=== PATIENT | female | born 1940 | race Caucasian/White ===

== ENCOUNTER → 2017-10-27 | Outpatient (CLI) | payer MEDICARE ==
[~2017-10-27] MED LIST: CLOPIDOGREL BISULFATE 75 MG TABLET; DIAZEPAM 10 MG TABLET.; HEPARIN SODIUM 5,000 UNIT/ML VIAL for PCVC.; HEPARIN for ARTERIAL LINE 1,500 ML; IODIXANOL 270 MG/ML 100 ML VIAL.; IOHEXOL 350 MG/ML 100 ML VIAL.; IV NORMAL SALINE 500ML BAG 500 ML; LIDOCAINE 1%/EPI 1:100,000 20 ML VIAL.; MIDAZOLAM HCL/PF 2 MG/2 ML VIAL.; ONDANSETRON PF 4 MG/2 ML VIAL.; WATER FOR INJECTION,STERILE 10 ML IJ; ceFAZolin SODIUM 1 GM VIAL; fentaNYL PF VIAL 100 MCG/2 ML VIAL; hydrALAZINE 20 MG/ML VIAL.
== END | disposition home or self-care (01) ==
LOC: PCVCINTER 07:24
DX: I70.202 Unspecified atherosclerosis of native arteries of extremities, left leg (principal); I70.1 Atherosclerosis of renal artery; I25.10 Atherosclerotic heart disease of native coronary artery without angina pectoris; I42.9 Cardiomyopathy, unspecified; I10 Essential (primary) hypertension; I11.0 Hypertensive heart disease with heart failure; E78.5 Hyperlipidemia, unspecified; Z95.810 Presence of automatic (implantable) cardiac defibrillator
CPT/HCPCS: 36252; 37221; 37223; 37236; 75716; 76937; 93458; 99152; 99153; C1725; C1751; C1760; C1769; C1876; C1887; C1894; J0360; J0690; J1644; J2250; J2405; J3010; J3490; J7040; Q9967

== ENCOUNTER → 2018-01-25 | Outpatient (CLI) | payer MEDICARE ==
--- NOTE | 2018-01-25 11:25 | PCVCIMAG ---
EXAM: BILATERAL CAROTID DUPLEX INDICATION: Carotid Occlusive Disease. FINDINGS: Doppler Measurements (centimeters per second): RIGHT: Peak CCA-56, Peak ECA-94, Diastolic ICA-46, Peak ICA-162, ICA/CCA Ratio-2.9. LEFT: Peak CCA-68, Peak ECA-79, Diastolic ICA-83, Peak ICA-230, ICA/CCA Ratio-3.4. RIGHT CAROTID: The carotid bulb has moderate plaque. The proximal internal carotid artery shows 60% stenosis. The common carotid artery shows no significant stenosis. The external carotid artery shows no significant stenosis. LEFT CAROTID: The carotid bulb has moderately severe plaque. The proximal internal carotid artery shows 70-80% stenosis. The common carotid artery shows no significant stenosis. The external carotid artery shows no significant stenosis. Antegrade flow in both vertebral arteries. IMPRESSION: 60% stenosis of the right internal carotid artery with moderate plaque. 70-80% stenosis of the left internal carotid artery with moderately severe plaque. LOC:[place] [id number]
--- NOTE | 2018-01-25 13:04 | PCVCIMAG ---
EXAM: NONINVASIVE ARTERIAL EXAMINATION OF BOTH LOWER EXTREMITIES INCLUDING PRE AND POST EXERCISE PRESSURE MEASUREMENTS AND DOPPLER WAVEFORMS INDICATION: Peripheral Arterial Disease. Leg pain. FINDINGS: Right Brachial: 144 mm Hg. Right Dorsalis Pedis: 96 mm Hg. Right Posterior Tibial: 80 mm Hg. Right JORGE LUIS = 0.67. Left Brachial: 138 mm Hg. Left Dorsalis Pedis: 60 mm Hg. Left Posterior Tibial: 79 mm Hg. Left JORGE LUIS = 0.55. Post Exercise: Right Brachial 155 mm Hg. Right Dorsalis Pedis: 52 mm Hg. Left Posterior Tibial: 90 mm Hg. Right JORGE LUIS = 0.34. Left JORGE LUIS = 0.58. IMPRESSION: Moderate resting ischemia in the right lower extremity. Severe exercise induced ischemia in the right lower extremity. Moderate resting ischemia in the left lower extremity. Moderate exercise induced ischemia in the left lower extremity. LOC:[id number]
--- NOTE | 2018-01-25 13:07 | PCVCIMAG ---
EXAM: AORTOILIAC DUPLEX INDICATION: Peripheral arterial disease FINDINGS: AORTA: Suprarenal aorta measures maximum diameter of 2.5 cm. There is a fusiform infrarenal aortic aneurysm. The infrarenal aorta measures maximum diameter of 2.9 x 3.5 cm. No aortic stenosis. RIGHT COMMON ILIAC ARTERY: Maximum diameter is 1.0 cm. No significant stenosis. RIGHT EXTERNAL ILIAC ARTERY: No significant stenosis. LEFT COMMON ILIAC ARTERY: Maximum diameter is 1.0 cm. No significant stenosis. LEFT EXTERNAL ILIAC ARTERY: No significant stenosis. IMPRESSION: 3.5 cm distal abdominal aortic aneurysm. No significant aortoiliac stenosis. Previous left iliac stents remain patent. LOC:[id number]
== END | disposition home or self-care (01) ==
LOC: PCVCIMAG 09:34
PROVIDERS: ATTEND Internal Medicine Cardiovascular Disease
DX: I65.23 Occlusion and stenosis of bilateral carotid arteries (principal); I73.9 Peripheral vascular disease, unspecified; I77.9 Disorder of arteries and arterioles, unspecified; I25.5 Ischemic cardiomyopathy; I47.2 Ventricular tachycardia; E78.00 Pure hypercholesterolemia, unspecified; I25.10 Atherosclerotic heart disease of native coronary artery without angina pectoris; I42.9 Cardiomyopathy, unspecified; I71.4 Abdominal aortic aneurysm, without rupture; Z87.891 Personal history of nicotine dependence
CPT/HCPCS: 93005; 93880; 93923; 93978; G0463; 93924

== ENCOUNTER → 2018-05-18 | Outpatient (CLI) | payer MEDICARE, OTHER ==
--- NOTE | 2018-05-18 11:58 | PCVCIMAG ---
EXAM: BILATERAL CAROTID DUPLEX INDICATION: Carotid Occlusive Disease. FINDINGS: Doppler Measurements (centimeters per second): RIGHT: Peak CCA-86, Peak ECA-102, Diastolic ICA-60, Peak ICA-199, ICA/CCA Ratio-2.3. LEFT: Peak CCA-77, Peak ECA-79, Diastolic ICA-127, Peak ICA-313, ICA/CCA Ratio-4.1. RIGHT CAROTID: The carotid bulb has moderately severe plaque. The proximal internal carotid artery shows 60-70% stenosis. The common carotid artery shows no significant stenosis. The external carotid artery shows no significant stenosis. LEFT CAROTID: The carotid bulb has severe plaque. The proximal internal carotid artery shows 90% stenosis. The common carotid artery shows no significant stenosis. The external carotid artery shows no significant stenosis. Antegrade flow in both vertebral arteries. IMPRESSION: 60-70% stenosis of the right internal carotid artery with moderately severe plaque. 90% stenosis of the left internal carotid artery with severe plaque has increased in severity since January 2018 study. LOC:[id number]
== END | disposition home or self-care (01) ==
LOC: PCVCIMAG 09:19
PROVIDERS: ATTEND Nuclear Medicine Nuclear Cardiology
DX: I65.23 Occlusion and stenosis of bilateral carotid arteries (principal); I77.9 Disorder of arteries and arterioles, unspecified
CPT/HCPCS: 93880

== ENCOUNTER → 2018-05-20 | Outpatient (CLI) | payer MEDICARE, OTHER | END | disposition home or self-care (01) | LOC: PCVCCLINIC 12:50 | PROVIDERS: ATTEND Internal Medicine Cardiovascular Disease | DX: I25.10 Atherosclerotic heart disease of native coronary artery without angina pectoris (principal); I25.5 Ischemic cardiomyopathy; E78.00 Pure hypercholesterolemia, unspecified; I11.0 Hypertensive heart disease with heart failure; I50.9 Heart failure, unspecified; Z79.82 Long term (current) use of aspirin; Z87.891 Personal history of nicotine dependence | CPT/HCPCS: 36415; 80061; 93005; G0463 ==

== ENCOUNTER → 2018-05-24 | Outpatient (CLI) | payer MEDICARE, OTHER ==
[~2018-05-24] MED LIST changes: -CLOPIDOGREL BISULFATE 75 MG TABLET; -DIAZEPAM 10 MG TABLET.; +DIAZEPAM 10 MG TABLET. ONE; -HEPARIN SODIUM 5,000 UNIT/ML VIAL for PCVC.; -HEPARIN for ARTERIAL LINE 1,500 ML; +HEPARIN for ARTERIAL LINE 1,500 ML ONE; +HEPARIN for SUB-Q USE 5,000 UNIT/ML VIAL. SQ ONE; -IODIXANOL 270 MG/ML 100 ML VIAL.; +IOHEXOL 300 MG/ML 100ML VIAL. ONE; -IOHEXOL 350 MG/ML 100 ML VIAL.; +IOHEXOL 350 MG/ML 100 ML VIAL. ONE; +IV NORMAL SALINE 1000ML BAG 1,000 ML ONE; -IV NORMAL SALINE 500ML BAG 500 ML; -LIDOCAINE 1%/EPI 1:100,000 20 ML VIAL.; +LIDOCAINE 1%/EPI 1:100,000 20 ML VIAL. ONE; -MIDAZOLAM HCL/PF 2 MG/2 ML VIAL.; +MIDAZOLAM HCL/PF 2 MG/2 ML VIAL. ONE; -ONDANSETRON PF 4 MG/2 ML VIAL.; +PROTAMINE 50 MG/5 ML VIAL. IV ONE; -WATER FOR INJECTION,STERILE 10 ML IJ; -ceFAZolin SODIUM 1 GM VIAL; -fentaNYL PF VIAL 100 MCG/2 ML VIAL; +fentaNYL PF VIAL 100 MCG/2 ML VIAL ONE; -hydrALAZINE 20 MG/ML VIAL.; +hydrALAZINE 20 MG/ML VIAL. ONE
--- NOTE | 2018-05-24 15:14 | PCVCINTER ---
EXAM: 1. CERVICOEPHALIC ARCH AORTOGRAM. 2. BILATERAL CAROTID ANGIOGRAPHY. 3. BILATERAL RENAL ANGIOGRAPHY. 4. BILATERAL ILEOFEMORAL ANGIOGRAPHY. 5. RIGHT COMMON ILIAC ARTERY STENT PLACEMENT. 6. RIGHT EXTERNAL ILIAC ARTERY STENT PLACEMENT. INDICATION: Carotid occlusive disease. Peripheral arterial disease. Bilateral claudication. Hypertension. Renal atherosclerosis. PROCEDURE: Procedure and risks of the procedures listed above were discussed with the patient and consent obtained. Risks including but not limited to bleeding, infection, stroke, vascular injury, neurologic injury, embolization, allergic reactions, and contrast-induced nephropathy requiring dialysis were discussed as appropriate and consent obtained. Patient was placed on the angiography table. IV conscious sedation was used throughout procedure with appropriate monitoring from 10:45 AM through 11:45 AM. The right groin was prepped and draped in the normal sterile fashion. Ultrasound was used to interrogate the right groin and demonstrate the right common femoral artery. An ultrasound image was saved. Under ultrasound guidance a 21 gauge needle was used to gain access into the right common femoral artery and a 6F vascular sheath was placed. Catheter was placed into the ascending aorta and cervicocephalic aortic arch angiogram performed. Catheter was placed into the suprarenal abdominal aorta and abdominal aortic angiogram performed. Catheter was placed at the aortic bifurcation and bilateral iliofemoral angiography performed. Catheter was placed into the right common carotid artery and right common carotid angiogram performed. Catheter was placed into the left common carotid artery and left common carotid angiogram performed. Catheter was placed into the right renal artery and right renal angiogram performed. Catheter was placed into the left renal artery and left renal angiogram performed. Stent placement across the areas of high-grade stenosis in the right common iliac artery was carried out with a 8 mm Cordis Smart stent with subsequent dilatation to 6.0 mm. Stent placement across the areas of high-grade stenosis in the right external iliac artery was carried out with a 8 mm Cordis Smart stent with subsequent dilatation to 6.[address] Sal joined the procedure and he then performed coronary angiography. Please see his separate dictation for full details. Catheters and wires were removed and hemostasis obtained using the FISH device. No immediate complications. FINDINGS: Cervicocephalic arch aortogram: Moderate plaque origin innominate artery does not cause significant stenosis. Eccentric plaque origin left common carotid artery results in 60% stenosis not felt be critically flow-limiting. Proximal left subclavian artery showing moderate plaque is not optimally seen but likely has at least mild stenosis. The cervical left vertebral artery is diminutive in size. The right vertebral artery shows cranial directed flow and is dominant. Right common carotid angiogram: This injection fills the right anterior, middle, and posterior cerebral distributions which are otherwise unremarkable. Note is made of flash filling of the left anterior cerebral distribution. The petrous and cavernous carotid artery are patent. 50% stenosis origin internal carotid artery not felt be flow-limiting. The common and external carotid arteries show satisfactory patency. Left common carotid angiogram: This injection fills the left anterior and middle cerebral distributions which are otherwise unremarkable. The cavernous and petrous carotid artery are patent. Mildly ulcerated plaque proximal internal carotid artery results in 60% stenosis not felt to be critically flow-limiting. The common and external carotid artery shows satisfactory patency. Abdominal aortogram: There is one right and one left renal artery. At least 60% stenosis proximal superior mesenteric artery. Small fusiform infrarenal abdominal aorta is noted. Bilateral iliofemoral angiogram: Previous left common and external iliac artery stents maintaining good patency. Moderate disease in the internal iliac arteries bilaterally. Moderate right common and external iliac artery stenoses are again seen. The right and left common femoral and profunda femoral arteries are patent. Diffuse stenoses visualized upper superficial femoral arteries are unchanged. Right renal angiogram: Previous stent proximal vessel maintaining good patency. Left renal angiogram: Mild plaque proximal vessel does not cause significant stenosis. Right common iliac artery: Following procedure as above vessel shows good patency. Right external iliac artery: Following procedure as above vessel shows good patency. IMPRESSION: Moderate plaque proximal right internal carotid artery results in 50% stenosis. Moderate plaque proximal left internal carotid artery results in 60% stenosis. 60% eccentric stenosis origin left common carotid artery. Left vertebral artery is diminutive in size with the right vertebral artery being dominant. Small fusiform infrarenal abdominal aortic aneurysm. Moderate right common and external iliac artery stenoses were treated with stent placement with good patency restored. LOC:[id number]
--- NOTE | 2018-05-24 16:28 | PCVCINTER ---
APPROVED REPORT Study performed: 05/24/2018 11:46:42 Patient Details Patient Status: Room #: 2 The patient is a 78 year-old Female Event Personnel Jonelle Long MD, Kartik Stewart RT(R), Megan Delong RT(R)(), Jack Monroy RN Indication Dyspnea Risk Factors Dysplipidemia (Type: 1), Peripheral Vascular Disease, Hypercholesterolemia, Coronary Artery Disease, Last Creatanine 1.3 Previous Procedures/Diagnoses Previous PCI, Previous Femoral Procedure, Previous AR Procedure Narrative The right coronary system was accessed and visualized with a JR4 catheter. The left coronary system was accessed and visualized with a JL4 catheter. Left ventricular/Aortic Valve gradient assessed via catheter pullback. Closure device was deployed with a 6 Fr FISH. Hemostasis was obtained with manual pressure following sheath removal without any complications. The patient tolerated the procedure well and there were no complications associated with the procedure. There was no hematoma. Coronary Angiography The patient's coronary anatomy is right dominant. Diagnostic Cath Left MainThis is a patent vessel, with no flow-limiting lesions. LADThis is a moderate size caliber vessel, traversing the anterior wall and wrapping around the apex. There is a moderate stenosis in the proximal segment, 40%. Diagonal 1This is a moderate size caliber vessel with a moderate stenosis approximately, 40%. This vessel divides into 2 branches. CircumflexThere is a subtotal occlusion proximally. Right CoronaryThis is a dominant vessel with a patent stent in the mid segment with mild to moderate restenosis, 30-40%. R PDAThis is a patent vessel, with no flow-limiting lesions. RPLVThis is a patent vessel, with no flow-limiting lesions. Left Ventriculography Left Ventriculography was not performed. An LVEDP was checked and there is no gradient across the outflow tract. Hemodynamics The left ventricular pressure is 140/7 mmHg with a mean of 14 mmHg. Conclusion 1. Patent stent in the RCA with mild to moderate restenosis. 2. Moderate disease in the LAD and first diagonal artery. 3. Subtotal occlusion in the left circumflex artery. 4. Recommend aggressive risk factor management.
== END | disposition home or self-care (01) ==
LOC: PCVCINTER 09:33
PROVIDERS: ATTEND Internal Medicine Cardiovascular Disease
DX: I70.213 Atherosclerosis of native arteries of extremities with intermittent claudication, bilateral legs (principal); I25.10 Atherosclerotic heart disease of native coronary artery without angina pectoris; I65.23 Occlusion and stenosis of bilateral carotid arteries; I70.1 Atherosclerosis of renal artery; I10 Essential (primary) hypertension; I25.2 Old myocardial infarction; K55.1 Chronic vascular disorders of intestine; I71.4 Abdominal aortic aneurysm, without rupture; Z95.810 Presence of automatic (implantable) cardiac defibrillator; Z90.710 Acquired absence of both cervix and uterus; Z98.890 Other specified postprocedural states; Z80.42 Family history of malignant neoplasm of prostate; Z82.3 Family history of stroke; E78.00 Pure hypercholesterolemia, unspecified; Z86.711 Personal history of pulmonary embolism; Z87.891 Personal history of nicotine dependence; Z72.89 Other problems related to lifestyle; Z88.8 Allergy status to other drugs, medicaments and biological substances; Z79.899 Other long term (current) drug therapy; Z79.82 Long term (current) use of aspirin; I47.2 Ventricular tachycardia; I25.5 Ischemic cardiomyopathy
CPT/HCPCS: 36223; 36252; 37221; 37223; 75630; 76937; 93458; 99152; 99153; C1725; C1751; C1760; C1769; C1876; C1894; J1644; J2250; J3010; J3490; J7030; Q9967; J0360

== ENCOUNTER → 2018-11-23 | Outpatient (CLI) | payer MEDICARE, OTHER | END | disposition home or self-care (01) | LOC: PCVCCLINIC 10:50 | PROVIDERS: ATTEND Internal Medicine Cardiovascular Disease | DX: Z45.02 Encounter for adjustment and management of automatic implantable cardiac defibrillator (principal); I42.8 Other cardiomyopathies; I47.2 Ventricular tachycardia; E78.00 Pure hypercholesterolemia, unspecified; Z88.8 Allergy status to other drugs, medicaments and biological substances; Z79.82 Long term (current) use of aspirin; Z79.899 Other long term (current) drug therapy; Z87.891 Personal history of nicotine dependence | CPT/HCPCS: 36415; 80061; 93005; G0463 ==

== ENCOUNTER → 2019-02-21 | Outpatient (CLI) | payer MEDICARE, OTHER ==
--- NOTE | 2019-02-21 10:30 | PCVCIMAG ---
EXAM: BILATERAL CAROTID DUPLEX INDICATION: Carotid Occlusive Disease. FINDINGS: Doppler Measurements (centimeters per second): RIGHT: Peak CCA-81, Peak ECA-82, Diastolic ICA-46, Peak ICA-165, ICA/CCA Ratio-2.0. LEFT: Peak CCA-73, Peak ECA-110, Diastolic ICA-90, Peak ICA-255, ICA/CCA Ratio-3.5. RIGHT CAROTID: The carotid bulb has moderate plaque. The proximal internal carotid artery shows 60% stenosis. The common carotid artery shows no significant stenosis. The external carotid artery shows no significant stenosis. LEFT CAROTID: The carotid bulb has severe plaque. The proximal internal carotid artery shows 80% stenosis. The common carotid artery shows no significant stenosis. The external carotid artery shows no significant stenosis. Antegrade flow in both vertebral arteries. IMPRESSION: 60% stenosis of the right internal carotid artery with moderate plaque. 80% stenosis of the left internal carotid artery with severe plaque. Degree of stenosis less prominent than on 2019 duplex study. Prior angiogram May 2018 showed previous duplex had overestimated the degree of stenosis. LOC:[id number]
--- NOTE | 2019-02-21 14:18 | PCVCIMAG ---
EXAM: AORTOILIAC DUPLEX INDICATION: Abdominal aortic aneurysm. Peripheral arterial disease. FINDINGS: AORTA: Suprarenal aorta measures maximum diameter of 2.9 cm. There is a fusiform infrarenal aortic aneurysm. The infrarenal aorta measures maximum diameter of 2.7 x 3.5 cm. No aortic stenosis. RIGHT COMMON ILIAC ARTERY: Maximum diameter is 1.1 cm. No significant stenosis. RIGHT EXTERNAL ILIAC ARTERY: No significant stenosis. LEFT COMMON ILIAC ARTERY: Maximum diameter is 0.8 cm. No significant stenosis. LEFT EXTERNAL ILIAC ARTERY: No significant stenosis. IMPRESSION: 3.5 cm distal abdominal aortic aneurysm. No significant aortoiliac stenosis. Previous bilateral iliac stents remain patent. No change since January 2018 study. LOC:[id number]
== END | disposition home or self-care (01) ==
LOC: PCVCIMAG 08:26
PROVIDERS: ATTEND Nuclear Medicine Nuclear Cardiology
DX: I65.23 Occlusion and stenosis of bilateral carotid arteries (principal); I73.9 Peripheral vascular disease, unspecified; I71.4 Abdominal aortic aneurysm, without rupture; I25.10 Atherosclerotic heart disease of native coronary artery without angina pectoris; E78.00 Pure hypercholesterolemia, unspecified; I11.0 Hypertensive heart disease with heart failure; I50.9 Heart failure, unspecified; Z95.810 Presence of automatic (implantable) cardiac defibrillator; Z87.891 Personal history of nicotine dependence
CPT/HCPCS: 93880; 93978; G0463